=== PATIENT | male | born 1950 | race Caucasian/White ===

== ENCOUNTER 2023-01-18 18:27 | Emergency (ER) | payer MEDICARE, SELFPAY ==
[2023-01-18] MEDS ORDERED: Boostrix 0.5 ML (Tdap) VIAL (>/=7 yrs of age) ONE (18:46)
[2023-01-18 19:33] LABS: #Basophils 0.1 thou/uL (0.0-0.2); #Eosinphils 0.1 thou/uL (0.0-0.7); #Lymphocytes 1.5 thou/uL (1.20-3.40); #Monocytes 0.6 thou/uL (0.11-0.59); #Neutrophils 5.7 thou/uL (1.40-6.50); %Eosinophils 1.8 % (0.0-10.0); %Lymphocytes 19.2 % (21.0-51.0); %Monocytes 7.4 % (0.0-10.0); %Neutrophils 70.6 % (42.0-75.0); Hemoglobin 14.2 g/dL (14.0-18.0); Mean Corpuscular HGB CONC 33.2 g/dL (32.0-36.0); Mean Corpuscular Hemoglobin 28.7 pg (27.0-31.0); Mean Corpuscular Volume 86.4 fl (78.0-98.0); Mean Platelet Volume 8.4 fL (7.4-10.4); Platelet Count 178 10x3/uL (130-400); RBC Distribution Width 12.6 % (11.5-14.5); Red Blood Cell (RBC) Count 4.94 mill/uL (4.70-6.10)
[2023-01-18] MEDS ORDERED: Sodium Chloride 0.9% 250 ML 250 ML ONE (19:44)
[2023-01-18] MEDS ORDERED: Sodium Chloride 0.9% 100 ML ONE (19:44)
[2023-01-18] MEDS ORDERED: Vancomycin 1 GM VIAL ONE (19:44)
[2023-01-18] MEDS ORDERED: Cefepime 2 GM VIAL ONE (19:44)
[2023-01-18 19:49] LABS: ALT (SGPT) 19 U/L (8-55); AST (SGOT) 16 U/L (5-34); Albumin 3.9 g/dL (3.4-4.8); Alkaline Phosphatase 85 U/L (40-110); Anion Gap 15 mmol/L (10-20); BUN (Urea Nitrogen) 11 mg/dL (8.4-25.7); Bilirubin, Total 0.4 mg/dL (0.2-1.2); CRP (Inflammatory) Less than 0.50 mg/dL (= or < 0.5); Calc. Creatinine Clearance 0 mL/min (70-130); Calcium 9.2 mg/dL (7.8-10.44); Carbon Dioxide 23 mmol/L (23-31); Chloride 109 mmol/L (98-107); Estimated GFR 74; Globulin 2.9 g/dL (2.4-3.5); Glucose 101 mg/dL (83-110); Potassium 4.2 mmol/L (3.5-5.1); Protein, Total 6.8 g/dL (5.8-8.1); Sodium 143 mmol/L (136-145)
[2023-01-18] MEDS ORDERED: diphenhydrAMINE 50 MG/ML VIAL ONE (21:51)
[2023-01-18] MEDS ORDERED: Ipratropium/Albuterol 3 ML NEB ONE (21:51)
[2023-01-18] MEDS ORDERED: methylPREDNISolone Sod Succ/PF 125 MG/2 ML VIAL ONE (21:51)
[2023-01-18] MEDS ORDERED: Acetaminophen 500 MG TAB ONE (23:45)
== END 2023-01-19 01:39 | disposition short-term general hospital (02) ==
LOC: MADERS 18:27
DX: L02.512 Cutaneous abscess of left hand (principal); L03.012 Cellulitis of left finger; Z23 Encounter for immunization
CPT/HCPCS: 36415; 80053; 83605; 85025; 86140; 87040; 90471; 90715; 93005; 94760; 96365; 96367; 96375; J0692; J1200; J2930; J3370; J3490; J7050; J7620